=== PATIENT | male | born 1990 | race African-American/Black ===

== ENCOUNTER 2021-08-22 00:28 | Emergency (ER) | payer OTHER ==
[~2021-08-22] VITALS: Ht 177.8 cm; Wt 90.9 kg
[2021-08-22] MEDS ORDERED: NS 1,000 ML IV ONE (01:45)
[2021-08-22] MEDS ORDERED: MULTIVITAMIN -ADULT INJECTION 10 ML, THIAMINE INJection 100 MG, FOLIC ACID 1 MG in NS 1... IV ONE (01:45)
[2021-08-22 02:04] LABS: HEMATOCRIT 41.3 % (42.0-52.0); HEMOGLOBIN 13.6 g/dl (13.5-17.5); MEAN CORPUSCULAR HEMOGLOBIN 32.3 pg (27.0-33.0); MEAN CORPUSCULAR HGB CONC 32.9 g/dl (32.0-36.5); MEAN CORPUSCULAR VOLUME 98.1 fl (80.0-96.0); PLATELET COUNT, AUTOMATED 231 10^3/uL (150-450); RED BLOOD COUNT 4.21 10^6/uL (4.30-6.10); WHITE BLOOD COUNT 6.6 10^3/uL (4.0-10.0)
[2021-08-22 02:13] LABS: CK-MB VALUE MASS 1.9 NG/ML (<3.6); CPK CREATINE PHOSPHOKINASE 466 U/L (39-308); MB/CK RELATIVE INDEX 0.41 (< OR =4); TROPONIN I < 0.02 NG/ML (< 0.10)
[2021-08-22 02:16] LABS: ACETAMINOPHEN LEVEL < 2.0 UG/ML (10.0-30.0); ALBUMIN 4.2 GM/DL (3.2-5.2); ALT/SGPT 29 U/L (12-78); BILIRUBIN,TOTAL 0.3 MG/DL (0.2-1.0); BLOOD UREA NITROGEN 14 MG/DL (7-18); CALCIUM LEVEL 9.7 MG/DL (8.5-10.1); CARBON DIOXIDE LEVEL 26 MEQ/L (21-32); CHLORIDE LEVEL 107 MEQ/L (98-107); CREATININE FOR GFR 1.42 MG/DL (0.70-1.30); GLOMERULAR FILTRATION RATE > 60.0 (>60); GLUCOSE, FASTING 134 MG/DL (70-100); MAGNESIUM LEVEL 1.9 MG/DL (1.8-2.4); POTASSIUM SERUM 3.9 MEQ/L (3.5-5.1); SALICYLATE LEVEL < 1.7 MG/DL (5.0-30.0); SODIUM LEVEL 142 MEQ/L (136-145); TOTAL PROTEIN 8.2 GM/DL (6.4-8.2)
[2021-08-22 05:13] LABS: ETHYL ALCOHOL (ETHANOL) 0.138 % (0.000-0.010)
--- OUTSIDE RECORDS SUMMARY | 2021-08-22 07:24 | CCD ---
Author Author [facility] Address Unknown Phone Unavailable Support Name Relationship Address Phone [facility] Next Of Kin [address] [place] [address] Unavailable Re-disclosure Warning The records that you are about to access may contain information from federally-assisted alcohol or drug abuse programs. If such information is present, then the following federally mandated warning applies: This information has been disclosed to you from records protected by federal confidentiality rules (42 CFR part 2). The federal rules prohibit you from making any further disclosure of this information unless further disclosure is expressly permitted by the written consent of the person to whom it pertains or as otherwise permitted by 42 CFR part 2. A general authorization for the release of medical or other information is NOT sufficient for this purpose. The Federal rules restrict any use of the information to criminally investigate or prosecute any alcohol or drug abuse patient.The records that you are about to access may contain highly sensitive health information, the redisclosure of which is protected by Article 27-F of the [facility] [place] Public Health law. If you continue you may have access to information: Regarding HIV / AIDS; Provided by facilities licensed or operated by the [facility] [place] Office of Mental Health; or Provided by the [facility] [place] Office for People With Developmental Disabilities. If such information is present, then the following [facility] [place] mandated warning applies: This information has been disclosed to you from confidential records which are protected by state law. State law prohibits you from making any further disclosure of this information without the specific written consent of the person to whom it pertains, or as otherwise permitted by law. Any unauthorized further disclosure in violation of state law may result in a fine or skilled nursing sentence or both. A general authorization for the release of medical or other information is NOT sufficient authorization for further disc losure. Medications No Information Insurance Providers Payer name Policy type / Coverage type Policy ID Covered libertarian ID Covered libertarian's relationship to byrnes Policy [employer] Plan Information [facility] [employer] [id number] Problems, Conditions, and Diagnoses No Information Surgeries/Procedures No Information Results No Information Social History No Information
--- NOTE | 2021-08-22 08:12 | ECGEPIP ---
[facility] - ED Test Date: 2021-08-22 Pat Name: Tomás Jacques Department: Room: - Gender: Male Editing Clerk: : 1990 Requested By: CIERA Brito Order Number: [id number] Reading MD: Annalee Granado Measurements Intervals Pride Rate: 140 P: WV: 112 QRS: -20 QRSD: 90 T: 37 QT: 354 QTc: 540 Interpretive Statements Sinus tachycardia NSTTW abnormalities No prior Electronically Signed on 08-22-2021 8:12:44 EST by Annalee Granado
[2021-08-22 08:15] VITALS: BP 136/71
[2021-08-22 08:47] LABS: AMPHETAMINES LEVEL URINE NEGATIVE (NEGATIVE); BARBITURATES URINE NEGATIVE (NEGATIVE); BENZODIAZEPINES URINE NEGATIVE (NEGATIVE); CANNABINOIDS URINE POSITIVE (NEGATIVE); COCAINE METABOLITE URINE NEGATIVE (NEGATIVE); METHADONE URINE NEGATIVE (NEGATIVE); OPIATES URINE NEGATIVE (NEGATIVE); PHENCYCLIDINE URINE NEGATIVE (NEGATIVE)
== END 2021-08-22 09:00 | disposition home or self-care (01) ==
LOC: EDBD 00:28 → M ED 00:28
DX: F10.10 Alcohol abuse, uncomplicated (principal); Y90.0 Blood alcohol level of less than 20 mg/100 ml
CPT/HCPCS: 80053; 80143; 80307; 82077; 82550; 82553; 83735; 84484; 85027; 93005; 96360; 99285; J3411

== ENCOUNTER 2021-10-21 20:29 | Inpatient (IN) | payer OTHER ==
[~2021-10-21] VITALS: Ht 175.3 cm; Wt 87.7 kg
[~2021-10-21 20:29] MED LIST: ACET32TAB PO
[2021-10-21] MEDS ORDERED: CHARCOAL ACTIVATED LIQUID 25 GM/120 ML BTL PO ONE (20:40)
[2021-10-21] MEDS ORDERED: LORazepam 2 MG/ML VIAL IV STA (20:51)
[2021-10-21] MEDS ORDERED: LORazepam 2 MG/ML VIAL As Ordered ONE (20:53)
[2021-10-21] MEDS: NS 1,000 ML IV SCH (20:59)
[2021-10-21 21:03] LABS: BASO # 0.1 10^3/uL (0.0-0.2); BASO % 0.6 % (0.0-1.0); EOS # 0.2 10^3/uL (0.0-0.5); EOS % 1.7 % (0.0-3.0); HEMATOCRIT 39.3 % (42.0-52.0); HEMOGLOBIN 13.1 g/dl (13.5-17.5); LYMPH # 5.3 10^3/uL (1.5-5.0); LYMPH % 51.6 % (24.0-44.0); MEAN CORPUSCULAR HEMOGLOBIN 31.7 pg (27.0-33.0); MEAN CORPUSCULAR HGB CONC 33.3 g/dl (32.0-36.5); MEAN CORPUSCULAR VOLUME 95.2 fl (80.0-96.0); MONO # 0.7 10^3/uL (0.0-0.8); MONO % 6.5 % (2.0-8.0); NEUTROPHILS % 39.4 % (36.0-66.0); PLATELET COUNT, AUTOMATED 278 10^3/uL (150-450); RED BLOOD COUNT 4.13 10^6/uL (4.30-6.10); WHITE BLOOD COUNT 10.2 10^3/uL (4.0-10.0)
[2021-10-21 21:40] LABS: ACETAMINOPHEN LEVEL < 2.0 UG/ML (10.0-30.0); ALBUMIN 3.8 GM/DL (3.2-5.2); ALT/SGPT 31 U/L (12-78); BILIRUBIN,DIRECT < 0.1 MG/DL (0.0-0.2); BILIRUBIN,TOTAL 0.2 MG/DL (0.2-1.0); BLOOD UREA NITROGEN 12 MG/DL (7-18); CALCIUM LEVEL 9.1 MG/DL (8.5-10.1); CARBON DIOXIDE LEVEL 26 MEQ/L (21-32); CHLORIDE LEVEL 105 MEQ/L (98-107); CREATININE FOR GFR 1.24 MG/DL (0.70-1.30); ETHYL ALCOHOL (ETHANOL) 0.536 % (0.000-0.010); GLOMERULAR FILTRATION RATE > 60.0 (>60); GLUCOSE, FASTING 175 MG/DL (70-100); POTASSIUM SERUM 3.5 MEQ/L (3.5-5.1); SALICYLATE LEVEL < 1.7 MG/DL (5.0-30.0); SODIUM LEVEL 140 MEQ/L (136-145); TOTAL PROTEIN 8.1 GM/DL (6.4-8.2)
[2021-10-21 22:39] LABS: VENOUS BASE EXCESS -2.6 (-2.0-2.0); VENOUS HCO3 23.7 MEQ/L (23.0-27.0); VENOUS PARTIAL PRESSURE CO2 47.3 mmHg (38.0-50.0); VENOUS PARTIAL PRESSURE O2 193.6 mmHg (30.0-50.0); VENOUS PH 7.318 UNITS (7.330-7.430); VENOUS STANDARD HCO3 22.3 MEQ/L; VENOUS TOTAL CO2 25.2 MEQ/L (24.0-28.0)
[2021-10-21 23:35] LABS: AMPHETAMINES LEVEL URINE NEGATIVE (NEGATIVE); BARBITURATES URINE NEGATIVE (NEGATIVE); BENZODIAZEPINES URINE NEGATIVE (NEGATIVE); CANNABINOIDS URINE NEGATIVE (NEGATIVE); COCAINE METABOLITE URINE NEGATIVE (NEGATIVE); METHADONE URINE NEGATIVE (NEGATIVE); OPIATES URINE NEGATIVE (NEGATIVE); PHENCYCLIDINE URINE NEGATIVE (NEGATIVE)
[2021-10-22] MEDS: NS 1,000 ML IV SCH (05:41)
[2021-10-22] MEDS ORDERED: LORazepam 2 MG TAB PO PRN (07:25)
[2021-10-22] MEDS ORDERED: OXAZEPAM 15 MG CAP PO ONE (08:50)
[2021-10-22] MEDS: FOLIC ACID 1 MG TAB PO SCH (15:03)
[2021-10-22] MEDS: MULTIVITAMINS/MINERALS THERAP 1 TAB PO SCH (15:03)
[2021-10-22] MEDS: THIAMINE 100 MG TAB PO SCH ×2 (15:04→21:00)
[2021-10-23] MEDS: MULTIVITAMINS/MINERALS THERAP 1 TAB PO SCH (10:05)
[2021-10-23] MEDS: THIAMINE 100 MG TAB PO SCH ×2 (10:05→21:22)
[2021-10-23] MEDS: FOLIC ACID 1 MG TAB PO SCH (10:05)
[2021-10-23] MEDS ORDERED: MAALOX 30 ML SUSP *UDC PO PRN (11:50)
[2021-10-23] MEDS ORDERED: MOM 30ML SUSPENSION UDC PO PRN (11:50)
[2021-10-23] MEDS ORDERED: OLANZapine ORAL DISINTEGRATING TAB 5MG PO PRN (11:50)
[2021-10-23] MEDS ORDERED: traZODone 50 MG TAB PO PRN (11:50)
[2021-10-23] MEDS ORDERED: ACETAMINOPHEN TAB 650MG DOSE (2X325MG) PO PRN (11:50)
[2021-10-23] MEDS ORDERED: TUMS500C PO (13:01)
[2021-10-23] MEDS ORDERED: MELA5TAB7 PO (13:01)
[2021-10-23 13:25] VITALS: BP 155/87
[2021-10-23] MEDS ORDERED: HOME MED LIST COMPLETE! XX SCH (13:35)
[2021-10-23 14:30] VITALS: BP 151/92
[2021-10-23 23:00] VITALS: BP 137/95
[2021-10-24 06:13] VITALS: BP 166/85
[2021-10-24 06:48] VITALS: BP 166/85
[2021-10-24] MEDS: FOLIC ACID 1 MG TAB PO SCH (09:26)
[2021-10-24] MEDS: THIAMINE 100 MG TAB PO SCH ×2 (09:26→22:45)
[2021-10-24] MEDS: MULTIVITAMINS/MINERALS THERAP 1 TAB PO SCH (09:26)
[2021-10-24] MEDS: SERTRALINE HCL 50 MG TAB PO SCH (14:35)
[2021-10-24 16:20] VITALS: BP 140/90
[2021-10-24] MEDS ORDERED: **hydrALAZINE** 10 MG TAB PO PRN (16:45)
[2021-10-25 06:34] VITALS: BP 148/95
[2021-10-25 08:00] VITALS: BP 148/78
[2021-10-25] MEDS: SERTRALINE HCL 50 MG TAB PO SCH (08:44)
[2021-10-25] MEDS: THIAMINE 100 MG TAB PO SCH (08:45)
[2021-10-25] MEDS: FOLIC ACID 1 MG TAB PO SCH (08:46)
[2021-10-25] MEDS: MULTIVITAMINS/MINERALS THERAP 1 TAB PO SCH (08:47)
[2021-10-25 16:00] VITALS: BP 141/90
[2021-10-25 16:16] VITALS: BP 141/90
[2021-10-26 06:34] VITALS: BP 148/98
[2021-10-26 08:00] VITALS: BP 141/90
[2021-10-26] MEDS: MULTIVITAMINS/MINERALS THERAP 1 TAB PO SCH (09:54)
[2021-10-26] MEDS: FOLIC ACID 1 MG TAB PO SCH (09:54)
[2021-10-26] MEDS: SERTRALINE HCL 50 MG TAB PO SCH (09:55)
[2021-10-26 16:14] VITALS: BP 143/95
[2021-10-26 19:00] VITALS: BP 143/95
[2021-10-27 06:31] VITALS: BP 140/99
[2021-10-27] MEDS: MULTIVITAMINS/MINERALS THERAP 1 TAB PO SCH (09:49)
[2021-10-27] MEDS: SERTRALINE HCL 50 MG TAB PO SCH (09:49)
[2021-10-27] MEDS: FOLIC ACID 1 MG TAB PO SCH (09:49)
[2021-10-27 19:06] VITALS: BP 166/90
[2021-10-28 06:27] VITALS: BP 136/81
[2021-10-28] MEDS: SERTRALINE HCL 50 MG TAB PO SCH (09:08)
[2021-10-28] MEDS ORDERED: SERT50TA29 PO (10:21)
[2021-10-28 17:39] VITALS: BP 140/72
[2021-10-29] MEDS: SERTRALINE HCL 50 MG TAB PO SCH (06:20)
[2021-10-29 06:39] VITALS: BP 140/90
== END 2021-10-29 08:10 | DRG 882 ==
LOC: M ED 20:29 → M ED INP 10-23 11:50 → M PSY 10-23 14:02
PROVIDERS: ADMIT Psychiatry & Neurology Psychiatry; ATTEND Psychiatry & Neurology Psychiatry
DX: F43.10 Post-traumatic stress disorder, unspecified (principal); F33.3 Major depressive disorder, recurrent, severe with psychotic symptoms; F10.10 Alcohol abuse, uncomplicated; T39.1X1A Poisoning by 4-Aminophenol derivatives, accidental (unintentional), initial encounter; Z63.5 Disruption of family by separation and divorce

== ENCOUNTER 2022-01-16 20:23 | Emergency (ER) | payer OTHER ==
[~2022-01-16] VITALS: Ht 180.3 cm; Wt 93.1 kg
[~2022-01-16 20:23] MED LIST changes: +MELA5TAB7 PO; +SERT50TA29 PO; +TUMS500C PO
[2022-01-16 21:23] LABS: HEMATOCRIT 43.7 % (42.0-52.0); HEMOGLOBIN 14.2 g/dl (13.5-17.5); MEAN CORPUSCULAR HEMOGLOBIN 31.5 pg (27.0-33.0); MEAN CORPUSCULAR HGB CONC 32.5 g/dl (32.0-36.5); MEAN CORPUSCULAR VOLUME 96.9 fl (80.0-96.0); PLATELET COUNT, AUTOMATED 293 10^3/uL (150-450); RED BLOOD COUNT 4.51 10^6/uL (4.30-6.10); WHITE BLOOD COUNT 9.3 10^3/uL (4.0-10.0)
[2022-01-16 21:41] LABS: AMPHETAMINES LEVEL URINE NEGATIVE (NEGATIVE); BARBITURATES URINE NEGATIVE (NEGATIVE); BENZODIAZEPINES URINE NEGATIVE (NEGATIVE); CANNABINOIDS URINE NEGATIVE (NEGATIVE); COCAINE METABOLITE URINE NEGATIVE (NEGATIVE); METHADONE URINE NEGATIVE (NEGATIVE); OPIATES URINE NEGATIVE (NEGATIVE); PHENCYCLIDINE URINE NEGATIVE (NEGATIVE)
[2022-01-16 21:55] LABS: RSV AMPLIFICATION NEGATIVE (NEGATIVE)
[2022-01-16 22:03] LABS: ACETAMINOPHEN LEVEL < 2.0 UG/ML (10.0-30.0); ALBUMIN 4.1 GM/DL (3.2-5.2); ALT/SGPT 25 U/L (12-78); BILIRUBIN,DIRECT < 0.1 MG/DL (0.0-0.2); BILIRUBIN,TOTAL 0.2 MG/DL (0.2-1.0); BLOOD UREA NITROGEN 13 MG/DL (7-18); CALCIUM LEVEL 9.5 MG/DL (8.5-10.1); CARBON DIOXIDE LEVEL 28 MEQ/L (21-32); CHLORIDE LEVEL 113 MEQ/L (98-107); CREATININE FOR GFR 1.15 MG/DL (0.70-1.30); ETHYL ALCOHOL (ETHANOL) 0.287 % (0.000-0.010); GLOMERULAR FILTRATION RATE > 60.0 (>60); GLUCOSE, FASTING 105 MG/DL (70-100); SALICYLATE LEVEL < 1.7 MG/DL (5.0-30.0); SODIUM LEVEL 150 MEQ/L (136-145); THYROID STIMULATING HORMONE 0.418 uIU/ML (0.358-3.740); TOTAL PROTEIN 7.8 GM/DL (6.4-8.2)
[2022-01-17] MEDS ORDERED: LORazepam 2 MG TAB PO PRN (06:25)
[2022-01-17] MEDS ORDERED: HOME MED LIST COMPLETE! XX SCH (07:50)
[2022-01-17] MEDS ORDERED: ACETAMINOPHEN 500 MG TAB PO ONE (08:25)
[2022-01-17] MEDS ORDERED: FOLIC ACID 1 MG TAB PO SCH (09:00)
[2022-01-17] MEDS ORDERED: MULTIVITAMINS/MINERALS THERAP 1 TAB PO SCH (09:00)
[2022-01-17] MEDS ORDERED: THIAMINE 100 MG TAB PO SCH (09:00)
[2022-01-17 10:48] VITALS: BP 109/59
== END 2022-01-17 10:49 | disposition home or self-care (01) ==
LOC: M ED 20:23
DX: F10.129 Alcohol abuse with intoxication, unspecified (principal); F32.A Depression, unspecified; Y90.7 Blood alcohol level of 200-239 mg/100 ml